=== PATIENT | female | born 1940 | race Caucasian/White ===

== ENCOUNTER 2021-12-26 06:56 | Day surgery (SDC) | payer MEDICARE ==
[2021-12-25 11:24] LABS: BASOPHILS % (AUTO) 0.8 % (0-1); EOSINOPHILS # (AUTO) 0.1 X10'3 (0-0.9); EOSINOPHILS % (AUTO) 3.2 % (0-6); HEMATOCRIT 34.5 % (35.0-45.0); HEMOGLOBIN 11.6 g/dl (12.0-16.0); LYMPHOCYTES # (AUTO) 0.8 X10'3 (1.1-4.8); LYMPHOCYTES % (AUTO) 28.5 % (21-51); MEAN CORPUSCULAR HEMOGLOBIN 30.7 PG (27.0-31.0); MEAN CORPUSCULAR HGB CONC 33.6 g/dL (33.0-36.5); MEAN CORPUSCULAR VOLUME 91.5 FL (78-98); MEAN PLATELET VOLUME 7.6 FL (7.4-10.4); MONOCYTES # (AUTO) 0.4 X10'3 (0-0.9); MONOCYTES % (AUTO) 16.1 % (2-12); NEUTROPHILS # (AUTO) 1.4 X10'3 (1.8-7.7); NEUTROPHILS % (AUTO) 51.4 % (42-75); PLATELET COUNT 179 X10'3 (140-440); RED BLOOD COUNT 3.77 X10'6 (4.20-5.60); RED CELL DISTRIBUTION WIDTH 12.4 % (11.5-14.5); WHITE BLOOD COUNT 2.8 X10'3 (4.5-11.0)
[2021-12-25 11:31] LABS: ANION GAP 8 (8-16); BLOOD UREA NITROGEN 35 MG/DL (7-18); CALCIUM 9.4 MG/DL (8.5-10.1); CHLORIDE 103 MMOL/L (99-107); CREATININE 1.59 MG/DL (0.40-0.90); GLUCOSE 113 MG/DL (70-104); SODIUM 137 MMOL/L (135-145); TOTAL CARBON DIOXIDE 25.6 MMOL/L (24-32); eGFR 31 ML/MIN
[2021-12-25 11:43] LABS: POTASSIUM 4.9 MMOL/L (3.5-5.1)
[2021-12-25 11:47] LABS: PLATELET ESTIMATE NORMAL; TOTAL CELLS COUNTED 100
[2021-12-25 11:52] LABS: APTT 26 SECONDS (22-32)
[~2021-12-26] VITALS: Ht 154.9 cm; Wt 73.2 kg
[2021-12-26] VITALS (14 sets, daily range): BP systolic 124–169; BP diastolic 50–111
[~2021-12-26 06:56] MED LIST: ALBU18HF2 IH; ASPI-612 PO; CALC-815 PO; EST1T PO; IMD30T PO; LOVA40TA76 PO; MULT-785 PO; NOR5T PO; POTA99TA15 PO; RANI-320 PO; SERT-153 PO; UBID10CA9 PO; [UNRECOGNIZED DRUG - CODE] PO
[2021-12-26] MEDS ORDERED: diphenhydrAMINE 25mg capsule PO PRN (07:20)
[2021-12-26] MEDS ORDERED: LORazepam 0.5 MG tablet PO PRN (07:20)
[2021-12-26] MEDS ORDERED: sodium bicarbonate (8.4%) inj. 150 ML in dextrose 5%-water 1,000 ML IV ONE ×2 (07:20→13:25)
[2021-12-26] MEDS ORDERED: normal saline 1,000 ML IV SCH (07:20)
[2021-12-26] MEDS ORDERED: ALBU90AE INH (08:59)
[2021-12-26] MEDS ORDERED: ROSU10TA2 PO (09:06)
[2021-12-26] MEDS ORDERED: ISOS30TA84 PO (09:06)
[2021-12-26] MEDS ORDERED: LOSA100T57 PO (09:06)
[2021-12-26] MEDS ORDERED: GABA300C PO (09:06)
[2021-12-26] MEDS ORDERED: TURM500C4 PO (09:06)
[2021-12-26] MEDS ORDERED: PARO20TA6 PO (09:06)
[2021-12-26] MEDS ORDERED: CARV12.529 PO (09:06)
[2021-12-26] MEDS ORDERED: SPIR25TA5 PO (09:06)
[2021-12-26] MEDS ORDERED: midazolam 1 mg/ML 2ml injection ONE (10:23)
[2021-12-26] MEDS ORDERED: iohexol 300mg/ml 100ml inj. ONE (10:23)
[2021-12-26] MEDS ORDERED: verapamil 2.5 mg/ml inj IV ONE (10:23)
[2021-12-26] MEDS ORDERED: nitroGLYCERIN-Tridil 50MG/D5W 250 ML IV ONE (10:23)
[2021-12-26] MEDS ORDERED: heparin 1,000unit/ml 10ml vial 10 ML ONE (10:24)
[2021-12-26] MEDS ORDERED: LIDOcaine 1% 30ml preserv. free vial ONE (10:24)
[2021-12-26] MEDS ORDERED: fentaNYL/PF 50MCG/1 ML 2ML syringe ONE (10:24)
[2021-12-26] MEDS ORDERED: guaiFENesin/DM 10ml UD oral syrup PO PRN (12:45)
== END 2021-12-26 19:00 | disposition home or self-care (01) ==
LOC: SSTAY O 06:56
PROVIDERS: ATTEND Internal Medicine Cardiovascular Disease
DX: R94.39 Abnormal result of other cardiovascular function study (principal); R06.02 Shortness of breath; R53.83 Other fatigue; I25.10 Atherosclerotic heart disease of native coronary artery without angina pectoris; I10 Essential (primary) hypertension; I48.0 Paroxysmal atrial fibrillation; I47.2 Ventricular tachycardia; E78.49 Other hyperlipidemia; K21.9 Gastro-esophageal reflux disease without esophagitis; M19.90 Unspecified osteoarthritis, unspecified site; E66.9 Obesity, unspecified; Z68.30 Body mass index [BMI] 30.0-30.9, adult; Z86.73 Personal history of transient ischemic attack (TIA), and cerebral infarction without residual deficits; Z98.890 Other specified postprocedural states; Z90.49 Acquired absence of other specified parts of digestive tract; Z90.710 Acquired absence of both cervix and uterus; Z88.8 Allergy status to other drugs, medicaments and biological substances; Z88.1 Allergy status to other antibiotic agents
CPT/HCPCS: 76937; 80048; 85025; 85610; 85730; 93005; 93458; 99152; 99153; A6258; C1760; C1769; C1894; J1644; J2250; J3010; J3490; J7030; J7070; Q0163; Q9967; 85007; A4620; A5120